=== PATIENT | female | born 1970 | race Asian ===

== ENCOUNTER 2024-09-18 12:32 | Emergency (ER) | payer OTHER ==
[~2024-09-18 12:32] MED LIST: Iopamidol 370 76% 100 ML VIAL ONE
[2024-09-18 13:06] LABS: #Basophils 0.2 thou/uL (0.0-0.2); #Eosinophils 0.2 thou/uL (0.0-0.7); #Lymphocytes 1.9 thou/uL (1.20-3.40); #Monocytes 0.6 thou/uL (0.11-0.59); #Neutrophils 7.5 thou/uL (1.40-6.50); %Basophils 1.5 % (0.0-1.0); %Eosinophils 2.1 % (0.0-10.0); %Lymphocytes 18.1 % (21.0-51.0); %Monocytes 5.7 % (0.0-10.0); %Neutrophils 72.6 % (42.0-75.0); Hematocrit 39.9 % (36.0-47.0); Hemoglobin 13.4 g/dL (12.0-16.0); Mean Corpuscular Hemoglobin 29.0 pg (27.0-31.0); Mean Corpuscular Volume 86.2 fl (78.0-98.0); Platelet Count 310 10x3/uL (130-400); Red Blood Cell (RBC) Count 4.63 mill/uL (4.20-5.40); White Blood Cell (WBC) Count 10.4 10x3/uL (4.8-10.8)
[2024-09-18] MEDS ORDERED: Ondansetron PF 4 MG/2 ML Vial ONE (13:09)
[2024-09-18 13:26] LABS: ALT (SGPT) 24 U/L (Less than 34); AST (SGOT) 52 U/L (11-34); Albumin 4.2 g/dL (3.1-4.5); Alkaline Phosphatase 179 U/L (40-110); Anion Gap 18 mmol/L (10-20); BUN (Urea Nitrogen) 13 mg/dL (9.8-20.1); Bilirubin, Total 0.5 mg/dL (0.3-1.2); Calc. Creatinine Clearance 0 mL/min (70-130); Calcium 9.4 mg/dL (7.8-10.44); Carbon Dioxide 21 mmol/L (22-29); Chloride 109 mmol/L (98-107); Globulin 4.4 g/dL (2.4-3.5); Glucose 116 mg/dL (70-105); Lipase 50 U/L (8-78); Potassium 4.4 mmol/L (3.5-5.1); Sodium 144 mmol/L (136-145)
[2024-09-18 14:15] LABS: Glucose, Urine (Dipstick) Negative (Negative); Leukocyte Trace (Negative); Protein, Urine (Dipstick) Negative (Neg-Trace); Specific Gravity, Urine 1.015 (1.005-1.030)
[2024-09-18 14:21] LABS: Bacteria/HPF 1+ HPF (None Seen); CAUTI Indications for Culture Dysuria,urgency,freq; Mucous/LPF Few LPF (<2+)
[2024-09-18 14:23] LABS: Urine Culture Reflex Yes Yes
== END 2024-09-18 18:27 | disposition short-term general hospital (02) ==
LOC: BURERS 12:32
DX: K80.00 Calculus of gallbladder with acute cholecystitis without obstruction (principal); M32.9 Systemic lupus erythematosus, unspecified
CPT/HCPCS: 74177; 80053; 81001; 83690; 85025; 87077; 87086; 87186; 96361; 96365; 96375; J2272; J2405; J2543; Q9967

== ENCOUNTER 2025-01-17 11:40 | Outpatient (CLI) | payer OTHER | END 2025-01-17 11:41 | disposition home or self-care (01) | LOC: BURRAD 11:40 | PROVIDERS: ATTEND Physician Assistant | DX: M25.552 Pain in left hip (principal); M21.852 Other specified acquired deformities of left thigh ==